=== PATIENT | male | born 1985 | race African-American/Black ===

== ENCOUNTER 2018-07-31 02:48 | Emergency (ER) | payer OTHER ==
[2018-07-31 03:28] VITALS: BP 150/99; PULSE 88; TEMP 98.1; BMI 28.2
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
[2018-07-31] MEDS ORDERED: TETANUS AND DIPHTHERIA TOXOID 0.5 ML DISP.SYRIN IM ONE (03:49)
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
[2018-07-31] MEDS ORDERED: DIPHTH,PERTUSS(ACELL),TET 0.5 ML DISP.SYRIN IM ONE (04:49)
[2018-07-31 05:12] LABS: HEMOGLOBIN 15.7 GM/dL (11.7-16.9); MCH 29.8 pg (25.7-33.7); MCHC 36.5 g/dl (32.0-35.9); MEAN CELL VOLUME 81.7 fl (80-96); MEAN PLT VOLUME 7.9 fl (7.5-11.1); PLATELET COUNT 234 K/MM3 (134-434); RBC 5.27 M/mm3 (4.00-5.60); RDW 14.2 % (11.9-15.9); WHITE BLOOD COUNT 8.6 K/mm3 (4.0-10.0)
[2018-07-31 05:27] LABS: BLOOD UREA NITROGEN 17 mg/dL (7-18); CHLORIDE 105 mmol/L (98-107); GLUCOSE,RANDOM 99 mg/dL (74-106); SODIUM 136 mmol/L (136-145)
[2018-07-31 05:28] LABS: ALBUMIN 4.2 g/dl (3.4-5.0); ALK PHOS 57 U/L (45-117); ANION GAP 6 MMOL/L (8-16); BILIRUBIN,TOTAL 0.6 mg/dL (0.2-1); CALCIUM 9.2 mg/dL (8.5-10.1); CO2 26 mmol/L (21-32); SGOT/AST 21 U/L (15-37); SGPT/ALT 42 U/L (13-61); TOT PROT 7.8 g/dl (6.4-8.2)
--- NOTE | 2018-07-31 05:47 | PDOC ---
ED Treatment Course - LABORATORY CBC & Chemistry Diagram: 07/31/18 04:53 07/31/18 04:53 - ADDITIONAL ORDERS Additional order review: Laboratory Results 07/31/18 04:53 Sodium 136 Potassium 4.0 Chloride 105 Carbon Dioxide 26 Anion Gap 6 L BUN 17 Creatinine 1.0 Creat Clearance w eGFR 86.60 Random Glucose 99 Calcium 9.2 Total Bilirubin 0.6 AST 21 ALT 42 Alkaline Phosphatase 57 Total Protein 7.8 Albumin 4.2 07/31/18 04:53 RBC 5.27 MCV 81.7 MCHC 36.5 H RDW 14.2 MPV 7.9 *DC/Admit/Observation/Transfer Diagnosis at time of Disposition: Exposure to blood, Left shoulder strain, Wrist strain, Knee strain - Discharge Dispostion Disposition: HOME Condition at time of disposition: Stable Decision to Admit order: No - Prescriptions Prescriptions: Emtricitabine/Tenofovir (Tdf) [Truvada 200 mg-300 mg Tablet] 1 each PO DAILY #3 tablet Raltegravir [Isentress -] 400 mg PO BID #6 tab - Referrals - Patient Instructions Printed Discharge Instructions: How to Handle Body Fluid Exposure -- Non- Healthcare Worker (At Home, [facility], DI for Joint Pain Additional Instructions: You came to the Emergency Department because of exposure to blood. We have tested your blood and we will call you with an abnormalities. Please take the prescribed medication for three days. You should contact your place of work to follow up for further exposure prophylaxis. Please return to the Emergency Department with any fever, chills, nausea, vomiting, chest pain, or shortness of breath. Follow-up with your employee health for clearance to return to work. They should be able to provide orthopedic referral as well. - Post Discharge Activity Forms/Work/School Notes: Back to Work
[2018-08-01 14:15] LABS: HEP.C VIRUS AB <0.1 s/co ratio (0.0-0.9)
== END 2018-07-31 06:34 | disposition home or self-care (01) ==
LOC: JER 02:48
PROC: 3E0234Z Introduction of Serum, Toxoid and Vaccine into Muscle, Percutaneous Approach (ICD-10-PCS; principal; 2018-07-31)
DX: Z77.21 Contact with and (suspected) exposure to potentially hazardous body fluids (principal); S46.812A Strain of other muscles, fascia and tendons at shoulder and upper arm level, left arm, initial encounter; S66.812A Strain of other specified muscles, fascia and tendons at wrist and hand level, left hand, initial encounter; S86.812A Strain of other muscle(s) and tendon(s) at lower leg level, left leg, initial encounter; Y35.811A Legal intervention involving manhandling, law enforcement official injured, initial encounter; Y04.2XXA Assault by strike against or bumped into by another person, initial encounter; Y93.89 Activity, other specified; Y92.89 Other specified places as the place of occurrence of the external cause; Y99.0 Civilian activity done for income or pay; Y07.9 Unspecified perpetrator of maltreatment and neglect
CPT/HCPCS: 36415; 73030-TC-LT-FY; 73110-TC-LT-FY; 73560-TC-LT-FY; 80053; 80074; 85027; 87389; 99281-25

== ENCOUNTER 2019-02-16 00:33 | Emergency (ER) | payer OTHER ==
[2019-02-16 01:12] VITALS: BP 145/91; PULSE 83; TEMP 98.1; BMI 73.7
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
== END 2019-02-16 01:32 | disposition home or self-care (01) ==
LOC: JER 00:33
DX: Z77.21 Contact with and (suspected) exposure to potentially hazardous body fluids (principal); Y35.891A Legal intervention involving other specified means, law enforcement official injured, initial encounter; Y93.89 Activity, other specified; Y92.89 Other specified places as the place of occurrence of the external cause; Y99.0 Civilian activity done for income or pay
CPT/HCPCS: 99281-25

== ENCOUNTER 2020-06-06 19:37 | Emergency (ER) | payer OTHER ==
[2020-06-06 20:09] VITALS: BP 150/104; PULSE 72; TEMP 98; BMI 28.2
== END 2020-06-06 20:32 | disposition home or self-care (01) ==
LOC: FER 19:37
DX: Z20.822 Contact with and (suspected) exposure to COVID-19 (principal)
CPT/HCPCS: 71045-TC-FY; 99283-25; C9803; U0003

== ENCOUNTER 2020-08-25 23:22 | Emergency (ER) | payer BC, OTHER ==
[2020-08-25 23:52] VITALS: BP 148/90; PULSE 114; TEMP 99.5; BMI 29.7
== END 2020-08-26 00:19 | disposition home or self-care (01) ==
LOC: FER 23:22
DX: S60.221A Contusion of right hand, initial encounter (principal)
CPT/HCPCS: 73130-TC-RT-FY; 99283-25

== ENCOUNTER 2020-10-18 18:30 | Emergency (ER) | payer OTHER ==
[2020-10-18 18:46] VITALS: BP 147/97; PULSE 80; TEMP 98.3; BMI 29.0
[2020-10-18] MEDS ORDERED: IBUPROFEN 600 MG TABLET (FP) PO ONE ×2 (18:53→18:56)
== END 2020-10-18 19:55 | disposition home or self-care (01) ==
LOC: FER 18:30
DX: M25.512 Pain in left shoulder (principal); S80.212A Abrasion, left knee, initial encounter
CPT/HCPCS: 73030-TC-LT-FY; 73560-TC-LT-FY; 99284-25

== ENCOUNTER 2021-10-12 18:32 | Emergency (ER) | payer OTHER, BC ==
[2021-10-12 18:40] VITALS: BP 153/94; PULSE 88; TEMP 99.5; BMI 29.5
== END 2021-10-12 18:49 | disposition home or self-care (01) ==
LOC: FER 18:32
DX: S60.419A Abrasion of unspecified finger, initial encounter (principal); W26.8XXA Contact with other sharp object(s), not elsewhere classified, initial encounter; Y35.891A Legal intervention involving other specified means, law enforcement official injured, initial encounter
CPT/HCPCS: 99281-25

== ENCOUNTER 2022-11-14 22:16 | Emergency (ER) | payer OTHER ==
[2022-11-14 22:21] VITALS: BP 130/81; PULSE 95; RESP 18; TEMP 99; BMI 29.9
[2022-11-14] MEDS ORDERED: IBUPROFEN 400 MG TABLET (FP) PO ONE ×2 (22:43→22:44)
== END 2022-11-14 23:27 | disposition home or self-care (01) ==
LOC: FER 22:16
DX: S16.1XXA Strain of muscle, fascia and tendon at neck level, initial encounter (principal); M54.2 Cervicalgia; V49.50XA Passenger injured in collision with unspecified motor vehicles in traffic accident, initial encounter; Y99.0 Civilian activity done for income or pay
CPT/HCPCS: 72050-TC-FY; 99283-25

== ENCOUNTER 2024-01-25 21:18 | Emergency (ER) | payer OTHER ==
[2024-01-25 21:37] VITALS: RESP 18; TEMP 99; BMI 29.0
[2024-01-25 22:34] VITALS: PULSE 84
[2024-01-25 22:35] VITALS: BP 157/106
== END 2024-01-25 22:37 | disposition home or self-care (01) ==
LOC: FER 21:18
DX: S56.911A Strain of unspecified muscles, fascia and tendons at forearm level, right arm, initial encounter (principal); S63.501A Unspecified sprain of right wrist, initial encounter; I10 Essential (primary) hypertension; X50.1XXA Overexertion from prolonged static or awkward postures, initial encounter; Y35.811A Legal intervention involving manhandling, law enforcement official injured, initial encounter
CPT/HCPCS: 99282-25